=== PATIENT | male | born 1970 | race Caucasian/White ===

== ENCOUNTER 2017-05-31 15:40 | Inpatient (IN) | payer MEDICAID, MEDICARE ==
[2017-05-31 16:17] LABS: MEAN CELL VOLUME 98.7 fl (80-99); MEAN CORPUSCULAR HEMOGLOBIN 34.3 pg (26.0-30.0); MEAN CORPUSCULAR HGB CONC 34.8 pg (28.0-36.0); MEAN PLATELET VOLUME 8.1 fl; RED CELL DISTRIBUTION WIDTH 23.4 % (11.5-20.0)
[2017-05-31 16:30] LABS: ALB/GLOB RATIO 0.7 (1.0-1.8); ALKALINE PHOSPHATASE 148 U/L (34-104); ANION GAP 5.5 (7.0-16.0); BILIRUBIN,TOTAL 8.1 mg/dL (0.3-1.0); BUN - UREA NITROGEN 25 mg/dL (7-25); BUN/CREATININE RATIO 16.7; CALCIUM SERUM 7.6 mg/dL (8.6-10.3); CARBON DIOXIDE 20.9 mEq/L (21.0-31.0); CHLORIDE 95 mEq/L (98-107); CREATININE - SERUM 1.5 mg/dL (0.7-1.3); GLUCOSE 108 mg/dL (70-105); POTASSIUM SERUM 4.4 mEq/L (3.5-5.1); SGOT 45 U/L (13-39); SGPT/ALT 23 U/L (7-52)
--- NOTE | 2017-05-31 16:44 | ED Physician Chart ---
Chief Complaint/HPI - Patient Information Date Seen:: 05/31/17 Time Seen:: 16:44 Chief Complaint:: ABNORMAL LAB VALUES History of Present Illness:: Patient was referred to the emergency department reevaluation of critical low lab values. Serum sodium returned at 117, leaflets were 13,000, white count was 3000 hemoglobin level was 7.5 GRAMS % Allergies:: Allergies Allergy/AdvReac Type Severity Reaction Status Date / Time No Known Allergies Allergy Verified 05/31/17 15:47 Vitals:: Vital Signs - 8 hr 05/31/17 15:47 Temp 97.9 F HR 74 RR 16 BP 126/80 O2 Sat % 97 Family Medical History - Family Member Mother Hx Family Cancer: No Hx Family Coronary Artery Disease: No Hx Family Congestive Heart Failure: No Hx Family Diabetes: No Hx Family Seizures: No Hx Family AIDS: No Hx Family HIV: No Hx Family Hepatitis: No Labs/Radiology/EKG Results - Lab Results Results: Laboratory Tests 05/31/17 16:10 Sodium 117 L* Potassium 4.4 Chloride 95 L Carbon Dioxide 20.9 L Anion Gap 5.5 L BUN 25 Creatinine 1.5 H Est GFR ( Amer) > 60.0 Est GFR (Non-Af Amer) 54.0 BUN/Creatinine Ratio 16.7 Glucose 108 H Calcium 7.6 L Total Bilirubin 8.1 H AST 45 H ALT 23 Alkaline Phosphatase 148 H Total Protein 4.8 L Albumin 2.0 L Globulin 2.8 Albumin/Globulin Ratio 0.7 L Medical hyponatremiA with low calcium. The CBC showed a white count of 3000. Troponin was 7.5 platelet counts were 13,000. Patient has been typed and screen for blood typing. ED Septic Shock - <6hrs of presentation: Vital Signs: Vital Signs - 8 hr 05/31/17 15:47 Temp 97.9 F HR 74 RR 16 BP 126/80 O2 Sat % 97
[2017-05-31 16:54] LABS: SODIUM SERUM 117 mEq/L (136-145)
[2017-05-31 16:57] LABS: HEMATOCRIT 21.7 % (39.0-49.0); HEMOGLOBIN 7.5 gm/dL (13.2-17.3); PLATELET COUNT 13 Th/cmm (150-400)
[2017-05-31] MEDS ORDERED: Sodium Chloride 0.9% 1,000 ML IV ONE (16:58)
[2017-05-31 17:17] LABS: TOTAL CELLS COUNTED 100
[2017-05-31 17:18] LABS: BAND NEUTROPHILE 0 % (0-10); NEUTROPHILS 60 % (40-80)
[2017-05-31 17:19] LABS: BASOPHIL 0 % (0-3); EOSINOPHIL 7 % (0-5); PLATELET ESTIMATE DECREASED PLATELETS (NORMAL); PLATELET MORPHOLOGY NORMAL (NORMAL)
[2017-05-31 17:20] LABS: ANISOCYTOSIS 2+
--- NOTE | 2017-06-01 08:51 | History and Physical ---
History of Present Illness - HPI Chief Complaint: Low platlelets HPI: [facility] is a [facility] who just have abdominal hernia repair, wound opened and was closed again bit get infected, catheter was put for drainage. Labs were order and was found platelets 9.000 reazon why was transfered to hospital for transfusion. 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 alcoholism) Musculoskeletal: Report: No Pertinent Hx Rheumatologic: Report: No pertinent Hx Infectious Disease: Report: Other (Surgical wound infection) Renal/: Report: No Pertinent Hx Dermatology: Report: No Pertinent Hx - Past Surgical History Past Surgical History: Other (Umbilical hernia repair) Family Medical History - Family Member Mother History Unknown: Yes Hx Family Cancer: No Hx Family Coronary Artery Disease: No Hx Family Congestive Heart Failure: No Hx Family Diabetes: No Hx Family Seizures: No Hx Family AIDS: No Hx Family HIV: No Hx Family Hepatitis: No Social History Smoke: No Alcohol: Other (Quiet one year ago) Drugs: Other (Opiates addiction) Lives: With Family Domestic Violence: Negative - Medications Home Medications: Home Medication Medication Instructions Recorded Type Anidulafungin [Eraxis] 100 mg IV DAILY 05/31/17 History Demeclocycline [Declomycin] 150 mg PO Q12HR 05/31/17 History Famotidine [Pepcid] 20 mg PO DAILY 05/31/17 History Furosemide [Lasix] 40 mg PO DAILY 05/31/17 History Lactobacillus Acidophilus 1 each PO DAILY 05/31/17 History [Acidophilus Lactobacillus] Piperacillin Sodium/Tazobactam 3.375 gm IV Q8H 05/31/17 History [Zosyn 3.375 Gram Vial] Sennosides A and B [Senna] 8.6 mg PO DAILY 05/31/17 History Tramadol HCl [Ultram] 50 mg PO Q6H PRN 05/31/17 History - Allergies Allergies/Adverse Reactions: Allergies Allergy/AdvReac Type Severity Reaction Status Date / Time No Known Allergies Allergy Verified 05/31/17 15:47 Review of Systems - Review of Systems Constitutional: Report: No Significant Eyes: Report: No Significant ENT: Report: No Significant Respiratory: Report: No Significant Cardiovascular: Report: No Significant Gastrointestinal: Report: Abdominal Pain Genitourinary: Report: No Significant Musculoskeletal: Report: No Significant Skin: Report: No Significant Neurological: Report: Weakness Physical Exam - Physical Exam HEENT: Report: Ears Nose Throat within normal limits Neck: Report: Within normal limits Cardiovascular Systems: Report: Regular, Rate and Rhythm Respiratory: Report: Breath Sounds are within normal limits Abdomen: Report: Non-tender to palpation (Umbilical surgical wound close but with a lot of drainage and a drainage catheter in place.) Back: Report: Inspection of back is within normal limits. Extremities: Report: Non-tender to palpation. Skin: Report: Color of skin is within normal limits Neuro/Psych: Report: Mood affect is within normal limits - Lab Results All Lab Results last 24 hours: Laboratory Last Values WBC 3.0 Th/cmm (4.8-10.8) L 05/31/17 16:10 RBC 2.20 Mil/cmm (4.30-5.70) L 05/31/17 16:10 Hgb 7.5 gm/dL (13.2-17.3) L* 05/31/17 16:10 Hct 21.7 % (39.0-49.0) L* 05/31/17 16:10 MCV 98.7 fl (80-99) 05/31/17 16:10 MCH 34.3 pg (26.0-30.0) H 05/31/17 16:10 MCHC Differential 34.8 pg (28.0-36.0) 05/31/17 16:10 RDW 23.4 % (11.5-20.0) H 05/31/17 16:10 Plt Count 13 Th/cmm (150-400) L* 05/31/17 16:10 MPV 8.1 fl 05/31/17 16:10 Band Neutrophils % 0 % (0-10) 05/31/17 16:10 Neutrophils (Manual) 60 % (40-80) 05/31/17 16:10 Lymphocytes 22 % (20-50) 05/31/17 16:10 Monocytes 11 % (2-10) H 05/31/17 16:10 Eosinophils 7 % (0-5) H 05/31/17 16:10 Basophils 0 % (0-3) 05/31/17 16:10 Platelet Estimate DECREASED PLATELETS (NORMAL) 05/31/17 16:10 Platelet Morphology NORMAL (NORMAL) 05/31/17 16:10 Anisocytosis 2+ 05/31/17 16:10 RBC Morph Micro Appear ABNORMAL (NORMAL) 05/31/17 16:10 Sodium 117 mEq/L (136-145) L* 05/31/17 16:10 Potassium 4.4 mEq/L (3.5-5.1) 05/31/17 16:10 Chloride 95 mEq/L (98-107) L 05/31/17 16:10 Carbon Dioxide 20.9 mEq/L (21.0-31.0) L 05/31/17 16:10 Anion Gap 5.5 (7.0-16.0) L 05/31/17 16:10 BUN 25 mg/dL (7-25) 05/31/17 16:10 Creatinine 1.5 mg/dL (0.7-1.3) H 05/31/17 16:10 Est GFR ( Amer) > 60.0 ml/min (>90) 05/31/17 16:10 Est GFR (Non-Af Amer) 54.0 ml/min 05/31/17 16:10 BUN/Creatinine Ratio 16.7 05/31/17 16:10 Glucose 108 mg/dL (70-105) H 05/31/17 16:10 Whole Bld Lactic Acid 1.47 mmol/L (0.60-1.99) 05/31/17 16:10 Calcium 7.6 mg/dL (8.6-10.3) L 05/31/17 16:10 Total Bilirubin 8.1 mg/dL (0.3-1.0) H 05/31/17 16:10 AST 45 U/L (13-39) H 05/31/17 16:10 ALT 23 U/L (7-52) 05/31/17 16:10 Alkaline Phosphatase 148 U/L (34-104) H 05/31/17 16:10 Total Protein 4.8 gm/dL (6.0-8.3) L 05/31/17 16:10 Albumin 2.0 gm/dL (4.2-5.5) L 05/31/17 16:10 Globulin 2.8 gm/dL 05/31/17 16:10 Albumin/Globulin Ratio 0.7 (1.0-1.8) L 05/31/17 16:10 Blood Type AB POSITIVE 05/31/17 17:08 Antibody Screen NEGATIVE 05/31/17 17:08 Crossmatch See Detail 05/31/17 17:08 - Assessment Assessment: Patient is awake, calm in no acute distress. Dx: Thombocytopenia, Hyponatrenia , Infected surgical wound, Cirrhosis, Esophageal varices. - Plan Plan: Patient just transfused, wound culture requested, consult with surgery and ID requested. Continue SNF meds.
[2017-06-01 08:55] LABS: % EOSINOPHILS 7.3 % (0.0-5.0); NEUTROPHILE ABSOLUTE 1.5 Th/cmm (1.8-8.0)
[2017-06-01 08:58] LABS: HEMATOCRIT 25.8 % (39.0-49.0); HEMOGLOBIN 8.9 gm/dL (13.2-17.3); MEAN CORPUSCULAR HEMOGLOBIN 33.9 pg (26.0-30.0); MEAN CORPUSCULAR HGB CONC 34.3 pg (28.0-36.0); MEAN PLATELET VOLUME 8.9 fl; RED BLOOD COUNT 2.61 Mil/cmm (4.30-5.70); RED CELL DISTRIBUTION WIDTH 22.5 % (11.5-20.0)
[2017-06-01] MEDS ORDERED: Non-Formulary Item 1 EA (Lactobacillus Acidophilus [Acidophilus Lactobacillus] 1 EACH) PO SCH (09:00)
[2017-06-01] MEDS ORDERED: Pneumococcal Vaccine 0.5 mL Vial IM ONE (09:00)
[2017-06-01 09:06] LABS: ALB/GLOB RATIO 0.7 (1.0-1.8); ALKALINE PHOSPHATASE 152 U/L (34-104); ANION GAP 6.2 (7.0-16.0); BILIRUBIN,TOTAL 8.7 mg/dL (0.3-1.0); BUN - UREA NITROGEN 21 mg/dL (7-25); CARBON DIOXIDE 20.3 mEq/L (21.0-31.0); CHLORIDE 95 mEq/L (98-107); GLUCOSE 98 mg/dL (70-105); POTASSIUM SERUM 4.5 mEq/L (3.5-5.1); SGOT 50 U/L (13-39); SGPT/ALT 25 U/L (7-52)
[2017-06-01 09:07] LABS: WHITE BLOOD COUNT 2.7 Th/cmm (4.8-10.8)
[2017-06-01 09:14] LABS: PLATELET COUNT 27 Th/cmm (150-400)
[2017-06-01 09:26] LABS: SODIUM SERUM 117 mEq/L (136-145)
--- NOTE | 2017-06-01 09:28 | General Progress Note ---
Subjective - Review of Systems Service Date: 06/01/17 Events since last encounter: hernia repair at [facility] a week ago(?), dehisced and drain applied has cirrhosis with severe thrombocytopenia will obtain records from hospital Objective - Results Result Diagrams: 06/01/17 08:40 06/01/17 08:40 Recent Labs: Laboratory Last Values WBC 2.7 Th/cmm (4.8-10.8) L 06/01/17 08:40 RBC 2.61 Mil/cmm (4.30-5.70) L 06/01/17 08:40 Hgb 8.9 gm/dL (13.2-17.3) L 06/01/17 08:40 Hct 25.8 % (39.0-49.0) L D 06/01/17 08:40 MCV 99.0 fl (80-99) 06/01/17 08:40 MCH 33.9 pg (26.0-30.0) H 06/01/17 08:40 MCHC Differential 34.3 pg (28.0-36.0) 06/01/17 08:40 RDW 22.5 % (11.5-20.0) H 06/01/17 08:40 Plt Count 27 Th/cmm (150-400) L* D 06/01/17 08:40 MPV 8.9 fl 06/01/17 08:40 Band Neutrophils % 0 % (0-10) 05/31/17 16:10 Neutrophils (Manual) 60 % (40-80) 05/31/17 16:10 Lymphocytes 22 % (20-50) 05/31/17 16:10 Monocytes 11 % (2-10) H 05/31/17 16:10 Eosinophils 7 % (0-5) H 05/31/17 16:10 Basophils 0 % (0-3) 05/31/17 16:10 Platelet Estimate DECREASED PLATELETS (NORMAL) 05/31/17 16:10 Platelet Morphology NORMAL (NORMAL) 05/31/17 16:10 Anisocytosis 2+ 05/31/17 16:10 RBC Morph Micro Appear ABNORMAL (NORMAL) 05/31/17 16:10 Sodium 117 mEq/L (136-145) L* 06/01/17 08:40 Potassium 4.5 mEq/L (3.5-5.1) 06/01/17 08:40 Chloride 95 mEq/L (98-107) L 06/01/17 08:40 Carbon Dioxide 20.3 mEq/L (21.0-31.0) L 06/01/17 08:40 Anion Gap 6.2 (7.0-16.0) L 06/01/17 08:40 BUN 21 mg/dL (7-25) 06/01/17 08:40 Creatinine 1.0 mg/dL (0.7-1.3) 06/01/17 08:40 Est GFR ( Amer) > 60.0 ml/min (>90) 06/01/17 08:40 Est GFR (Non-Af Amer) > 60.0 ml/min 06/01/17 08:40 BUN/Creatinine Ratio 21.0 06/01/17 08:40 Glucose 98 mg/dL (70-105) 06/01/17 08:40 Whole Bld Lactic Acid 1.47 mmol/L (0.60-1.99) 05/31/17 16:10 Calcium 8.0 mg/dL (8.6-10.3) L 06/01/17 08:40 Total Bilirubin 8.7 mg/dL (0.3-1.0) H 06/01/17 08:40 AST 50 U/L (13-39) H 06/01/17 08:40 ALT 25 U/L (7-52) 06/01/17 08:40 Alkaline Phosphatase 152 U/L (34-104) H 06/01/17 08:40 Total Protein 5.2 gm/dL (6.0-8.3) L 06/01/17 08:40 Albumin 2.2 gm/dL (4.2-5.5) L 06/01/17 08:40 Globulin 3.0 gm/dL 06/01/17 08:40 Albumin/Globulin Ratio 0.7 (1.0-1.8) L 06/01/17 08:40 Blood Type AB POSITIVE 05/31/17 17:08 Antibody Screen NEGATIVE 05/31/17 17:08 Crossmatch See Detail 05/31/17 17:08 - Physical Exam Vitals and I&O: Vital Signs Temp 97.1 F 06/01/17 04:00 Pulse 94 06/01/17 04:00 Resp 18 06/01/17 04:00 BP 107/58 06/01/17 04:00 Pulse Ox 95 06/01/17 04:00 Intake & Output 05/31/17 06/01/17 06/01/17 18:59 06:59 18:59 Intake Total 1000 Balance 1000 Intake: Intake, IV Amount 1000 Sodium Chloride 0.9% 1, 1000 000 ml @ Wide Open IV . Q0M ONE Rx#:[id number] Active Medications: Current Medications Famotidine (Pepcid) 20 mg PO DAILY [facility] Stop: 07/31/17 08:59 Furosemide (Lasix) 20 mg IVP DAILY [facility] Stop: 07/31/17 08:59 Furosemide (Lasix) 40 mg PO DAILY [facility] Stop: 07/31/17 08:59 Lactobacillus Rhamnosus (Culturelle) 1 each PO DAILY [facility] Stop: 07/31/17 08:59 Senna (Senna) 8.6 mg PO DAILY [facility] Stop: 07/31/17 08:59 Sodium Chloride (Nacl Tab) 1 gm PO TID [facility] Stop: 07/31/17 08:59 Tramadol HCl (Ultram) 50 mg PO Q6H PRN PRN Reason: Pain (Mild) Stop: 07/31/17 08:27
[2017-06-01] MEDS: Lactobacillus Rhamnosus 10 Billion CFU Capsule PO SCH (09:33)
[2017-06-01 09:36] LABS: BAND NEUTROPHILE 2 % (0-10); EOSINOPHIL 4 % (0-5); NEUTROPHILS 68 % (40-80); TOTAL CELLS COUNTED 100
[2017-06-01] MEDS: Vancomycin HCl 1.5 GM in Sodium Chloride 0.9% 500 ML IV SCH (16:49)
[2017-06-01] MEDS: Cefepime 1 GM in Sodium Chloride 0.9% 50 ML IV SCH (22:20)
[2017-06-01] MEDS: Maalox 30 mL Cup PO PRN (23:12)
--- NOTE | 2017-06-02 04:18 | Admit Criteria Form ---
Admit Criteria Forms - Admit Criteria Diagnosis: ANEMIA, IRON DEFICIENCY OR UNSPECIFIED Clinical Indications for Inpatient Care (Place 'X' for any and all applicable criteria): Admission is indicated for ANY ONE of the following(1)(2)(3)(4)(5)(6)(7): [X] I. Inpatient admission required rather than observation care (Also use Anemia, Iron Deficiency or Unspecified: Observation Care guideline as appropriate) because of ANY ONE of the following: [] a) Hemodynamic instability that is severe or persistent [] b) Active bleeding that cannot be rapidly controlled [] c) CVS symptoms (i.e., dyspnea, chest pain, heart failure) that are severe or persistent [] d) Neurologic symptoms (i.e., cognitive impairment, recurrent syncope or near syncope) that are severe or persistent [] e) Cardiac arrhythmias of immediate concern [] f) Acute peripheral ischemia (e.g., pulseless, cool, mottled, or cyanotic extremity) [X] g) High-risk low platelet count [] h) Acute renal failure [] i) Ongoing transfusion for blood loss (greater than 2 units) [] j) IV fluid to replace significant ongoing (eg, >24 hours) losses (> 3 L/m2 per day) [] k) Pulmonary artery catheter monitoring [] l) Supplemental oxygen or respiratory treatments for over 24 hours that are performable only in acute inpatient setting [] m) Immediate inpatient surgery [] n) Other condition, treatment or monitoring requiring inpatient admission [] II Active massive hemorrhage [] III. Active hemolysis with rapidly progressive anemia [A](6) Extended stay beyond goal length of stay may be needed for (17)(18) []a) Diagnosed cause of anemia requiring longer hospitalization (eg, active GI bleeding, immune hemolysis requiring electrophoresis, complications of malignancy requiring acute care []b) Continued emergent anemia indicators (23) []c) Transfusion reactions []d) Associated leukopenia or thrombocytopenia needing inpatient care []e) Active comorbidities (eg, renal failure, heart failure) The original [employer] content created by [employer] has been revised. The portions of the content which have been revised are identified through the use of italic text or in bold. [employer] has neither reviewed nor approved the modified material. All other unmodified content is copyright [employer]. Please see references footnoted in the original [facility] edition 2016 Admit Criteria Met?: Yes
[2017-06-02] MEDS: Vancomycin HCl 1.5 GM in Sodium Chloride 0.9% 500 ML IV SCH ×2 (04:56→16:22)
[2017-06-02 05:49] LABS: HEMOGLOBIN 8.3 gm/dL (13.2-17.3); MEAN CELL VOLUME 99.5 fl (80-99); MEAN CORPUSCULAR HEMOGLOBIN 34.3 pg (26.0-30.0); MEAN CORPUSCULAR HGB CONC 34.5 pg (28.0-36.0); MEAN PLATELET VOLUME 8.8 fl; RED BLOOD COUNT 2.41 Mil/cmm (4.30-5.70); RED CELL DISTRIBUTION WIDTH 23.3 % (11.5-20.0)
[2017-06-02 06:17] LABS: PLATELET COUNT 23 Th/cmm (150-400); WHITE BLOOD COUNT 2.2 Th/cmm (4.8-10.8)
[2017-06-02] MEDS: Maalox 30 mL Cup PO PRN ×3 (07:02→20:35)
[2017-06-02 07:12] LABS: ALB/GLOB RATIO 0.7 (1.0-1.8); ALKALINE PHOSPHATASE 118 U/L (34-104); ANION GAP 6.8 (7.0-16.0); BILIRUBIN,TOTAL 10.5 mg/dL (0.3-1.0); BUN - UREA NITROGEN 15 mg/dL (7-25); BUN/CREATININE RATIO 16.7; CALCIUM SERUM 7.9 mg/dL (8.6-10.3); CARBON DIOXIDE 22.8 mEq/L (21.0-31.0); CHLORIDE 94 mEq/L (98-107); CREATININE - SERUM 0.9 mg/dL (0.7-1.3); GLUCOSE 110 mg/dL (70-105); POTASSIUM SERUM 4.6 mEq/L (3.5-5.1); SGOT 52 U/L (13-39); SGPT/ALT 26 U/L (7-52)
[2017-06-02 07:20] LABS: SODIUM SERUM 119 mEq/L (136-145)
[2017-06-02 07:48] LABS: TOTAL CELLS COUNTED 100
[2017-06-02 07:49] LABS: EOSINOPHIL 7 % (0-5); NEUTROPHILS 58 % (40-80); PLATELET ESTIMATE DECREASED PLATELETS (NORMAL)
[2017-06-02] MEDS: Lactobacillus Rhamnosus 10 Billion CFU Capsule PO SCH (09:00)
[2017-06-02] MEDS: Cefepime 1 GM in Sodium Chloride 0.9% 50 ML IV SCH (09:18)
[2017-06-02] MEDS: Meropenem 1 GM in Sodium Chloride 0.9% 100 ML IV SCH ×2 (12:46→20:36)
[2017-06-02] MEDS ORDERED: Probiotic Screen MC PRN (13:23)
--- NOTE | 2017-06-02 13:27 | General Progress Note ---
Subjective - Review of Systems Service Date: 06/02/17 Subjective: I am OK. Objective - Results Result Diagrams: 06/02/17 05:10 06/02/17 05:10 Recent Labs: Laboratory Last Values WBC 2.2 Th/cmm (4.8-10.8) L* 06/02/17 05:10 RBC 2.41 Mil/cmm (4.30-5.70) L 06/02/17 05:10 Hgb 8.3 gm/dL (13.2-17.3) L 06/02/17 05:10 Hct 24.0 % (39.0-49.0) L 06/02/17 05:10 MCV 99.5 fl (80-99) H 06/02/17 05:10 MCH 34.3 pg (26.0-30.0) H 06/02/17 05:10 MCHC Differential 34.5 pg (28.0-36.0) 06/02/17 05:10 RDW 23.3 % (11.5-20.0) H 06/02/17 05:10 Plt Count 23 Th/cmm (150-400) L* 06/02/17 05:10 MPV 8.8 fl 06/02/17 05:10 Band Neutrophils % 2 % (0-10) 06/01/17 08:40 Eosinophils % 7.3 % (0.0-5.0) H 06/01/17 08:40 Neutrophils (Manual) 58 % (40-80) 06/02/17 05:10 Lymphocytes 29 % (20-50) 06/02/17 05:10 Monocytes 6 % (2-10) 06/02/17 05:10 Eosinophils 7 % (0-5) H 06/02/17 05:10 Basophils 0 % (0-3) 05/31/17 16:10 Platelet Estimate DECREASED PLATELETS (NORMAL) 06/02/17 05:10 Platelet Morphology (NORMAL) 06/02/17 05:10 Anisocytosis 2+ 05/31/17 16:10 RBC Morph Micro Appear ABNORMAL (NORMAL) 05/31/17 16:10 Sodium 119 mEq/L (136-145) L* 06/02/17 05:10 Potassium 4.6 mEq/L (3.5-5.1) 06/02/17 05:10 Chloride 94 mEq/L (98-107) L 06/02/17 05:10 Carbon Dioxide 22.8 mEq/L (21.0-31.0) 06/02/17 05:10 Anion Gap 6.8 (7.0-16.0) L 06/02/17 05:10 BUN 15 mg/dL (7-25) 06/02/17 05:10 Creatinine 0.9 mg/dL (0.7-1.3) 06/02/17 05:10 Est GFR ( Amer) > 60.0 ml/min (>90) 06/02/17 05:10 Est GFR (Non-Af Amer) > 60.0 ml/min 06/02/17 05:10 BUN/Creatinine Ratio 16.7 06/02/17 05:10 Glucose 110 mg/dL (70-105) H 06/02/17 05:10 Whole Bld Lactic Acid 1.47 mmol/L (0.60-1.99) 05/31/17 16:10 Calcium 7.9 mg/dL (8.6-10.3) L 06/02/17 05:10 Total Bilirubin 10.5 mg/dL (0.3-1.0) H 06/02/17 05:10 AST 52 U/L (13-39) H 06/02/17 05:10 ALT 26 U/L (7-52) 06/02/17 05:10 Alkaline Phosphatase 118 U/L (34-104) H 06/02/17 05:10 Total Protein 5.3 gm/dL (6.0-8.3) L 06/02/17 05:10 Albumin 2.1 gm/dL (4.2-5.5) L 06/02/17 05:10 Globulin 3.2 gm/dL 06/02/17 05:10 Albumin/Globulin Ratio 0.7 (1.0-1.8) L 06/02/17 05:10 Blood Type AB POSITIVE 05/31/17 17:08 Antibody Screen NEGATIVE 05/31/17 17:08 Crossmatch See Detail 05/31/17 17:08 - Physical Exam Vitals and I&O: Vital Signs Temp 98 F 06/02/17 11:13 Pulse 99 06/02/17 11:13 Resp 18 06/02/17 11:13 BP 110/66 06/02/17 11:13 Pulse Ox 99 06/02/17 11:13 Intake & Output 06/01/17 06/02/17 06/02/17 18:59 06:59 18:59 Intake Total 740 290 100 Output Total 650 Balance 740 -360 100 Weight (lbs) 81.647 kg 93.485 kg 93.44 kg Intake: Intake, IV Amount 500 50 Cefepime 1 gm In Sodium 50 Chloride 0.9% 50 ml @ 100 mls/hr IV Q12HR [facility] Rx#: [id number] Vancomycin HCl 1.5 gm In 500 Sodium Chloride 0.9% 500 ml @ 250 mls/hr IV Q12H [facility] Rx#:[id number] Oral 240 240 100 Output: Gastric Drainage 250 Urine 400 Other: # Voids 3 Active Medications: Current Medications Al Hydrox/Mg Hydrox/Simethicone (Maalox) 30 ml PO Q8HR PRN PRN Reason: Indigestion Stop: 07/31/17 21:17 Last Admin: 06/02/17 12:13 Dose: 30 ml Famotidine (Pepcid) 20 mg PO DAILY [facility] Stop: 07/31/17 08:59 Last Admin: 06/02/17 09:00 Dose: 20 mg Furosemide (Lasix) 40 mg PO DAILY [facility] Stop: 07/31/17 08:59 Last Admin: 06/02/17 08:33 Dose: 40 mg Vancomycin HCl 1.5 gm/ Sodium (Chloride) 500 mls @ 250 mls/hr IV Q12H [facility] Stop: 07/31/17 15:59 Last Admin: 06/02/17 04:56 Dose: 250 mls/hr Meropenem 1 gm/ Sodium (Chloride) 100 mls @ 100 mls/hr IV Q8H [facility] Stop: 08/01/17 11:59 Last Admin: 06/02/17 12:46 Dose: 100 mls/hr Lactobacillus Rhamnosus (Culturelle) 1 each PO DAILY [facility] Stop: 07/31/17 08:59 Last Admin: 06/02/17 09:00 Dose: 1 each Miscellaneous (Vancomycin Iv Per Pharmacy) 1 ea PRN [facility] Stop: 07/31/17 15:44 Miscellaneous (Probiotic Screen) 1 ea PRN PRN PRN Reason: PROTOCOL Stop: 08/01/17 13:22 Senna (Senna) 8.6 mg PO DAILY [facility] Stop: 07/31/17 08:59 Last Admin: 06/02/17 09:00 Dose: 8.6 mg Sodium Chloride (Nacl Tab) 1 gm PO TID [facility] Stop: 07/31/17 08:59 Last Admin: 06/02/17 08:33 Dose: 1 gm Tramadol HCl (Ultram) 50 mg PO Q6H PRN PRN Reason: Pain (Mild) Stop: 07/31/17 08:27 Last Admin: 06/01/17 20:43 Dose: 50 mg General: Alert, Oriented x3, Cooperative, No acute distress HEENT: Atraumatic Neck: Supple Cardiovascular: Regular rate Lungs: Clear to auscultation Abdomen: Bowel sounds, Soft, Other (Surgical wound with some drainage) Extremities: Other (No edema) Neurological: Normal gait Skin: Other (Warm and dry) Psych/Mental Status: Mental status NL - Procedures Procedures: Procedures Procedure Code Date BLOOD TRANSFUSION SERVICE 30014 05/31/17 TRANSFUSE NONAUT RED BLOOD CELLS IN PERIPH VEIN, [facility] [id number] 05/31/17 Assessment/Plan - Assessment Assessment: Patient is awake, calm in no acute distress. Dx: Thombocytopenia, Hyponatrenia , Infected surgical wound, Cirrhosis, Esophageal varices. - Plan Plan: Patient just transfused, wound culture requested, Thrombocytopenia improving, Hyponatremia improving, on Meropenem. Will continue to monitor.
[2017-06-02 16:54] LABS: INR 1.47 (0.5-1.4); PROTHROMBIN TIME (TEST) 15.6 SECONDS (9.5-11.5)
--- NOTE | 2017-06-02 16:56 | General Progress Note ---
Subjective - Review of Systems Service Date: 06/02/17 Events since last encounter: awaiting op reports from [facility] patient is NOT a surgical candidate with thrombocytopenia and seveere cirrhosis Objective - Results Result Diagrams: 06/02/17 05:10 06/02/17 05:10 Recent Labs: Laboratory Last Values WBC 2.2 Th/cmm (4.8-10.8) L* 06/02/17 05:10 RBC 2.41 Mil/cmm (4.30-5.70) L 06/02/17 05:10 Hgb 8.3 gm/dL (13.2-17.3) L 06/02/17 05:10 Hct 24.0 % (39.0-49.0) L 06/02/17 05:10 MCV 99.5 fl (80-99) H 06/02/17 05:10 MCH 34.3 pg (26.0-30.0) H 06/02/17 05:10 MCHC Differential 34.5 pg (28.0-36.0) 06/02/17 05:10 RDW 23.3 % (11.5-20.0) H 06/02/17 05:10 Plt Count 23 Th/cmm (150-400) L* 06/02/17 05:10 MPV 8.8 fl 06/02/17 05:10 Band Neutrophils % 2 % (0-10) 06/01/17 08:40 Eosinophils % 7.3 % (0.0-5.0) H 06/01/17 08:40 Neutrophils (Manual) 58 % (40-80) 06/02/17 05:10 Lymphocytes 29 % (20-50) 06/02/17 05:10 Monocytes 6 % (2-10) 06/02/17 05:10 Eosinophils 7 % (0-5) H 06/02/17 05:10 Basophils 0 % (0-3) 05/31/17 16:10 Platelet Estimate DECREASED PLATELETS (NORMAL) 06/02/17 05:10 Platelet Morphology (NORMAL) 06/02/17 05:10 Anisocytosis 2+ 05/31/17 16:10 RBC Morph Micro Appear ABNORMAL (NORMAL) 05/31/17 16:10 PT 15.6 SECONDS (9.5-11.5) H 06/02/17 16:35 INR 1.47 (0.5-1.4) H 06/02/17 16:35 PTT (Actin FS) 39.4 SECONDS (26.0-38.0) H 06/02/17 16:35 Sodium 119 mEq/L (136-145) L* 06/02/17 05:10 Potassium 4.6 mEq/L (3.5-5.1) 06/02/17 05:10 Chloride 94 mEq/L (98-107) L 06/02/17 05:10 Carbon Dioxide 22.8 mEq/L (21.0-31.0) 06/02/17 05:10 Anion Gap 6.8 (7.0-16.0) L 06/02/17 05:10 BUN 15 mg/dL (7-25) 06/02/17 05:10 Creatinine 0.9 mg/dL (0.7-1.3) 06/02/17 05:10 Est GFR ( Amer) > 60.0 ml/min (>90) 06/02/17 05:10 Est GFR (Non-Af Amer) > 60.0 ml/min 06/02/17 05:10 BUN/Creatinine Ratio 16.7 06/02/17 05:10 Glucose 110 mg/dL (70-105) H 06/02/17 05:10 Whole Bld Lactic Acid 1.47 mmol/L (0.60-1.99) 05/31/17 16:10 Calcium 7.9 mg/dL (8.6-10.3) L 06/02/17 05:10 Total Bilirubin 10.5 mg/dL (0.3-1.0) H 06/02/17 05:10 AST 52 U/L (13-39) H 06/02/17 05:10 ALT 26 U/L (7-52) 06/02/17 05:10 Alkaline Phosphatase 118 U/L (34-104) H 06/02/17 05:10 Total Protein 5.3 gm/dL (6.0-8.3) L 06/02/17 05:10 Albumin 2.1 gm/dL (4.2-5.5) L 06/02/17 05:10 Globulin 3.2 gm/dL 06/02/17 05:10 Albumin/Globulin Ratio 0.7 (1.0-1.8) L 06/02/17 05:10 Blood Type AB POSITIVE 05/31/17 17:08 Antibody Screen NEGATIVE 05/31/17 17:08 Crossmatch See Detail 05/31/17 17:08 - Physical Exam Vitals and I&O: Vital Signs Temp 98.2 F 06/02/17 15:35 Pulse 72 06/02/17 15:35 Resp 18 06/02/17 15:35 BP 100/57 06/02/17 15:35 Pulse Ox 99 06/02/17 11:13 Intake & Output 06/01/17 06/02/17 06/02/17 18:59 06:59 18:59 Intake Total 740 790 100 Output Total 650 Balance 740 140 100 Weight (lbs) 81.647 kg 93.485 kg 93.44 kg Intake: Intake, IV Amount 500 550 Cefepime 1 gm In Sodium 50 Chloride 0.9% 50 ml @ 100 mls/hr IV Q12HR [facility] Rx#: [id number] Vancomycin HCl 1.5 gm In 500 500 Sodium Chloride 0.9% 500 ml @ 250 mls/hr IV Q12H [facility] Rx#:[id number] Oral 240 240 100 Output: Gastric Drainage 250 Urine 400 Other: # Voids 3 Active Medications: Current Medications Al Hydrox/Mg Hydrox/Simethicone (Maalox) 30 ml PO Q8HR PRN PRN Reason: Indigestion Stop: 07/31/17 21:17 Last Admin: 06/02/17 12:13 Dose: 30 ml Famotidine (Pepcid) 20 mg PO DAILY [facility] Stop: 07/31/17 08:59 Last Admin: 06/02/17 09:00 Dose: 20 mg Furosemide (Lasix) 40 mg PO DAILY [facility] Stop: 07/31/17 08:59 Last Admin: 06/02/17 08:33 Dose: 40 mg Vancomycin HCl 1.5 gm/ Sodium (Chloride) 500 mls @ 250 mls/hr IV Q12H [facility] Stop: 07/31/17 15:59 Last Admin: 06/02/17 16:22 Dose: 250 mls/hr Meropenem 1 gm/ Sodium (Chloride) 100 mls @ 100 mls/hr IV Q8H [facility] Stop: 08/01/17 11:59 Last Admin: 06/02/17 12:46 Dose: 100 mls/hr Lactobacillus Rhamnosus (Culturelle) 1 each PO DAILY [facility] Stop: 07/31/17 08:59 Last Admin: 06/02/17 09:00 Dose: 1 each Miscellaneous (Vancomycin Iv Per Pharmacy) 1 ea PRN [facility] Stop: 07/31/17 15:44 Miscellaneous (Probiotic Screen) 1 ea PRN PRN PRN Reason: PROTOCOL Stop: 08/01/17 13:22 Senna (Senna) 8.6 mg PO DAILY [facility] Stop: 07/31/17 08:59 Last Admin: 06/02/17 09:00 Dose: 8.6 mg Sodium Chloride (Nacl Tab) 1 gm PO TID [facility] Stop: 07/31/17 08:59 Last Admin: 06/02/17 13:43 Dose: 1 gm Tramadol HCl (Ultram) 50 mg PO Q6H PRN PRN Reason: Pain (Mild) Stop: 07/31/17 08:27 Last Admin: 06/01/17 20:43 Dose: 50 mg General: Alert, Oriented x3, Cooperative, No acute distress HEENT: Atraumatic Neck: Supple Cardiovascular: Regular rate Lungs: Clear to auscultation Abdomen: Bowel sounds, Soft, Other (Surgical wound with some drainage) Extremities: Other (No edema) Neurological: Normal gait Skin: Other (Warm and dry) Psych/Mental Status: Mental status NL - Procedures Procedures: Procedures Procedure Code Date BLOOD TRANSFUSION SERVICE 11119 05/31/17 TRANSFUSE NONAUT RED BLOOD CELLS IN PERIPH VEIN, [facility] [id number] 05/31/17
--- NOTE | 2017-06-02 17:49 | Consultation ---
DATE OF CONSULTATION: 06/02/2017 Information is basically obtained from the chart because otherwise, the patient is totally unreliable on giving any information. Apparently, he had an abdominal hernia repair, which dehisced and ____ operated on with a catheter put in place. We are waiting for the operative report to come from [facility] where apparently this was done. LABORATORY STUDIES: On this admission, the WBC is low at 3000 with hemoglobin of 7.5, platelet count low at 13,000. The liver function tests are grossly abnormal with bilirubin of 8.1, AST of 45, alkaline phosphatase of 148, total protein 4.8, albumin of 2.0. PHYSICAL EXAMINATION: The patient is alert and awake, but information is not dependable. He tends to exaggerate. There is an abdominal incision with a Hugo-Ashby drain in place, which is draining serous fluid. RECOMMENDATIONS: Obtain operative report from hospital where he had an operation done. He is not a surgical candidate with leukopenia and thrombocytopenia and severe cirrhosis of the liver. We will follow with you. JOB# [id number]
--- NOTE | 2017-06-02 19:18 | Consultation ---
DATE OF CONSULTATION: 06/02/2017 REFERRING PHYSICIAN: Dr. Cuellar. REASON FOR CONSULTATION: Leukopenia and thrombocytopenia. HISTORY OF PRESENT ILLNESS: The patient is a 46-year-old male with long history of alcoholism and liver cirrhosis. He had abdominal hernia for the past few years and underwent a recent repair 3 weeks ago at [facility]. He had infection of the drainage site, therefore, the patient was admitted. He was found to have platelet count of 9000, transfused one packed red blood cells and 1 platelets for hemoglobin of 7.5 and platelets of 9000. The increment in the platelet was mild and the patient did not have any bleeding since admission. PAST MEDICAL HISTORY: Liver cirrhosis, history of ____, history of GI bleeding in the past. He is using alcohol ____ opiates. PAST SURGICAL HISTORY: Umbilical hernia. SOCIAL HISTORY: Chronic alcoholic drinking, the patient quit several months ago. MEDICATIONS: Medications from home prior to admission Zosyn, acidophilus, Lasix, famotidine. PHYSICAL EXAMINATION: GENERAL: The patient is chronically ill looking, awake, alert, oriented. Sister at bedside. VITAL SIGNS: Stable. HEENT: Atraumatic. No buccal mucosal bleeding. NECK: No lymphadenopathy. CHEST: Clear. ABDOMEN: Dressing over the large hernia which was recently repaired with drainage in place. No active bleeding. EXTREMITIES: Edema on both lower extremities. LABORATORY DATA: White count 2.2, platelet count 23, hemoglobin 8.3, MCV 99.5, bilirubin 10.5, albumin 2.1, AST 52. ASSESSMENT: 1. Liver cirrhosis with hypersplenism. 2. Chronic pancytopenia secondary to hypersplenism. 3. Hernia status post repair with infection of the drainage site, on IV antibiotics; keep the patient off Zosyn. I will obtain ultrasound of the abdomen, B12 and ferritin level. No need for further transfusion and I will obtain coagulation panel. Thank you, Dr. Cuellar for the opportunity to participate in the care of this interesting case . JOB# [id number]
--- NOTE | 2017-06-02 23:12 | Consultation ---
DATE OF CONSULTATION: 06/01/2017 PRIMARY CARE PHYSICIAN: Dr. Cuellar. HISTORY OF PRESENT ILLNESS: The patient is a 46-year-old male, who was brought to the Emergency Room with complaint of abdominal wound infection. HISTORY OF PRESENT ILLNESS: The patient underwent umbilical hernia repair at [facility] and subsequent infection. The patient got surgical wound infection and underwent drain placement. PAST MEDICAL HISTORY: Liver cirrhosis. SOCIAL HISTORY: Nonsmoker. PAST SURGICAL HISTORY: Hernia repair. REVIEW OF SYSTEMS: A 14-point review of systems negative except above. PHYSICAL EXAMINATION: GENERAL: The patient is alert, awake, not in distress. VITAL SIGNS: Temperature is 98.4, pulse is 74, respirations 16, blood pressure 126/80. HEENT: Mild pallor. No icterus. No plaque. NECK: Supple. LUNGS: Breath sounds bilateral vesicular. CARDIOVASCULAR: S1, S2. ABDOMEN: Soft. Bowel sounds present. The patient had umbilical wound with drain present. NODES: No cervical lymph nodes. LABORATORY DATA: White count is 2,000, hemoglobin is 8 g, platelets 23. DIAGNOSES: Liver cirrhosis, pancytopenia, surgical wound infection, history of ESBL. PLAN: The patient was started on Merrem and vancomycin. Repeat labs tomorrow. Probiotics. Pain control with tramadol. Thank you, Dr. Cuellar for this consultation. JOB# [id number]
[2017-06-03] MEDS: Meropenem 1 GM in Sodium Chloride 0.9% 100 ML IV SCH ×2 (04:06→11:18)
[2017-06-03] MEDS: Maalox 30 mL Cup PO PRN (04:11)
[2017-06-03 04:42] LABS: HEMATOCRIT 25.8 % (39.0-49.0); HEMOGLOBIN 8.9 gm/dL (13.2-17.3); MEAN CELL VOLUME 100.1 fl (80-99); MEAN CORPUSCULAR HEMOGLOBIN 34.6 pg (26.0-30.0); MEAN CORPUSCULAR HGB CONC 34.6 pg (28.0-36.0); MEAN PLATELET VOLUME 10.1 fl; RED BLOOD COUNT 2.58 Mil/cmm (4.30-5.70); RED CELL DISTRIBUTION WIDTH 23.6 % (11.5-20.0)
[2017-06-03 05:12] LABS: PLATELET COUNT 27 Th/cmm (150-400)
[2017-06-03] MEDS: Vancomycin HCl 1.5 GM in Sodium Chloride 0.9% 500 ML IV SCH ×2 (05:12→15:21)
[2017-06-03 08:43] LABS: BAND NEUTROPHILE 3 % (0-10); EOSINOPHIL 8 % (0-5); NEUTROPHILS 66 % (40-80); TOTAL CELLS COUNTED 100
[2017-06-03 08:44] LABS: ANISOCYTOSIS 2+; PLATELET ESTIMATE DECREASED PLATELETS (NORMAL); PLATELET MORPHOLOGY NORMAL (NORMAL); POIKILOCYTOSIS 1+; ROULEAUX 1+
--- NOTE | 2017-06-03 09:11 | General Progress Note ---
Subjective - Review of Systems Service Date: 06/03/17 Subjective: I am OK. Objective - Results Result Diagrams: 06/03/17 03:30 06/02/17 05:10 Recent Labs: Laboratory Last Values WBC 3.0 Th/cmm (4.8-10.8) L D 06/03/17 03:30 RBC 2.58 Mil/cmm (4.30-5.70) L 06/03/17 03:30 Hgb 8.9 gm/dL (13.2-17.3) L 06/03/17 03:30 Hct 25.8 % (39.0-49.0) L 06/03/17 03:30 MCV 100.1 fl (80-99) H 06/03/17 03:30 MCH 34.6 pg (26.0-30.0) H 06/03/17 03:30 MCHC Differential 34.6 pg (28.0-36.0) 06/03/17 03:30 RDW 23.6 % (11.5-20.0) H 06/03/17 03:30 Plt Count 27 Th/cmm (150-400) L* 06/03/17 03:30 MPV 10.1 fl 06/03/17 03:30 Band Neutrophils % 3 % (0-10) 06/03/17 03:30 Eosinophils % 7.3 % (0.0-5.0) H 06/01/17 08:40 Neutrophils (Manual) 66 % (40-80) 06/03/17 03:30 Lymphocytes 13 % (20-50) L 06/03/17 03:30 Monocytes 9 % (2-10) 06/03/17 03:30 Eosinophils 8 % (0-5) H 06/03/17 03:30 Basophils 0 % (0-3) 05/31/17 16:10 Atypical Lymphocytes 1 % 06/03/17 03:30 Platelet Estimate DECREASED PLATELETS (NORMAL) 06/03/17 03:30 Platelet Morphology NORMAL (NORMAL) 06/03/17 03:30 Poikilocytosis 1+ 06/03/17 03:30 Anisocytosis 2+ 06/03/17 03:30 Rouleaux 1+ 06/03/17 03:30 RBC Morph Micro Appear ABNORMAL (NORMAL) 06/03/17 03:30 PT 15.6 SECONDS (9.5-11.5) H 06/02/17 16:35 INR 1.47 (0.5-1.4) H 06/02/17 16:35 PTT (Actin FS) 39.4 SECONDS (26.0-38.0) H 06/02/17 16:35 Sodium 119 mEq/L (136-145) L* 06/02/17 05:10 Potassium 4.6 mEq/L (3.5-5.1) 06/02/17 05:10 Chloride 94 mEq/L (98-107) L 06/02/17 05:10 Carbon Dioxide 22.8 mEq/L (21.0-31.0) 06/02/17 05:10 Anion Gap 6.8 (7.0-16.0) L 06/02/17 05:10 BUN 15 mg/dL (7-25) 06/02/17 05:10 Creatinine 0.9 mg/dL (0.7-1.3) 06/02/17 05:10 Est GFR ( Amer) > 60.0 ml/min (>90) 06/02/17 05:10 Est GFR (Non-Af Amer) > 60.0 ml/min 06/02/17 05:10 BUN/Creatinine Ratio 16.7 06/02/17 05:10 Glucose 110 mg/dL (70-105) H 06/02/17 05:10 Whole Bld Lactic Acid 1.47 mmol/L (0.60-1.99) 05/31/17 16:10 Calcium 7.9 mg/dL (8.6-10.3) L 06/02/17 05:10 Total Bilirubin 10.5 mg/dL (0.3-1.0) H 06/02/17 05:10 AST 52 U/L (13-39) H 06/02/17 05:10 ALT 26 U/L (7-52) 06/02/17 05:10 Alkaline Phosphatase 118 U/L (34-104) H 06/02/17 05:10 Total Protein 5.3 gm/dL (6.0-8.3) L 06/02/17 05:10 Albumin 2.1 gm/dL (4.2-5.5) L 06/02/17 05:10 Globulin 3.2 gm/dL 06/02/17 05:10 Albumin/Globulin Ratio 0.7 (1.0-1.8) L 06/02/17 05:10 Vancomycin Trough 12.5 ug/mL (10-20) 06/03/17 03:30 Blood Type AB POSITIVE 05/31/17 17:08 Antibody Screen NEGATIVE 05/31/17 17:08 Crossmatch See Detail 05/31/17 17:08 - Physical Exam Vitals and I&O: Vital Signs Temp 98.2 F 06/03/17 04:00 Pulse 100 06/03/17 04:00 Resp 20 06/03/17 04:00 BP 102/59 06/03/17 04:00 Pulse Ox 99 06/03/17 04:00 Intake & Output 06/02/17 06/03/17 06/03/17 18:59 06:59 18:59 Intake Total 700 100 Balance 700 100 Weight (lbs) 93.44 kg Intake: Intake, IV Amount 600 100 Meropenem 1 gm In Sodium 100 100 Chloride 0.9% 100 ml @ 100 mls/hr IV Q8H [facility] Rx# :[id number] Vancomycin HCl 1.5 gm In 500 Sodium Chloride 0.9% 500 ml @ 250 mls/hr IV Q12H [facility] Rx#:[id number] Oral 100 Other: # Voids 3 Active Medications: Current Medications Al Hydrox/Mg Hydrox/Simethicone (Maalox) 30 ml PO Q8HR PRN PRN Reason: Indigestion Stop: 07/31/17 21:17 Last Admin: 06/03/17 04:11 Dose: 30 ml Famotidine (Pepcid) 20 mg PO DAILY [facility] Stop: 07/31/17 08:59 Last Admin: 06/02/17 09:00 Dose: 20 mg Furosemide (Lasix) 40 mg PO DAILY [facility] Stop: 07/31/17 08:59 Last Admin: 06/02/17 08:33 Dose: 40 mg Vancomycin HCl 1.5 gm/ Sodium (Chloride) 500 mls @ 250 mls/hr IV Q12H [facility] Stop: 07/31/17 15:59 Last Admin: 06/03/17 05:12 Dose: 250 mls/hr Meropenem 1 gm/ Sodium (Chloride) 100 mls @ 100 mls/hr IV Q8H [facility] Stop: 08/01/17 11:59 Last Admin: 06/03/17 04:06 Dose: 100 mls/hr Lactobacillus Rhamnosus (Culturelle) 1 each PO DAILY [facility] Stop: 07/31/17 08:59 Last Admin: 06/02/17 09:00 Dose: 1 each Miscellaneous (Vancomycin Iv Per Pharmacy) 1 ea PRN [facility] Stop: 07/31/17 15:44 Miscellaneous (Probiotic Screen) 1 [facility] PRN PRN PRN Reason: PROTOCOL Stop: 08/01/17 13:22 Senna (Senna) 8.6 mg PO DAILY [facility] Stop: 07/31/17 08:59 Last Admin: 06/02/17 09:00 Dose: 8.6 mg Sodium Chloride (Nacl Tab) 1 gm PO TID [facility] Stop: 07/31/17 08:59 Last Admin: 06/02/17 20:35 Dose: 1 gm Tramadol HCl (Ultram) 50 mg PO Q6H PRN PRN Reason: Pain (Mild) Stop: 07/31/17 08:27 Last Admin: 06/03/17 03:28 Dose: 50 mg General: Alert, Oriented x3, Cooperative, No acute distress HEENT: Atraumatic Neck: Supple Cardiovascular: Regular rate Lungs: Clear to auscultation Abdomen: Bowel sounds, Soft, Other (Surgical wound with some drainage) Extremities: Other (No edema) Neurological: Normal gait Skin: Other (Warm and dry) Psych/Mental Status: Mental status NL - Procedures Procedures: Procedures Procedure Code Date BLOOD TRANSFUSION SERVICE 56402 05/31/17 TRANSFUSE NONAUT RED BLOOD CELLS IN PERIPH VEIN, [facility] [id number] 05/31/17 Assessment/Plan - Assessment Assessment: Patient is awake, calm in no acute distress. Dx: Thombocytopenia, Hyponatrenia , Infected surgical wound, Cirrhosis, Esophageal varices. - Plan Plan: Patient just transfused, wound culture requested, Thrombocytopenia improving, Hyponatremia improving, on Meropenem. Will continue to monitor.
[2017-06-03] MEDS: Lactobacillus Rhamnosus 10 Billion CFU Capsule PO SCH (09:34)
[2017-06-03 12:09] LABS: FOLIC ACID 8.3 ng/mL (>3.0)
--- NOTE | 2017-06-03 12:26 | General Progress Note ---
Subjective - Review of Systems Service Date: 06/03/17 Events since last encounter: no bleeding Objective - Results Result Diagrams: 06/03/17 03:30 06/02/17 05:10 Recent Labs: Laboratory Last Values WBC 3.0 Th/cmm (4.8-10.8) L D 06/03/17 03:30 RBC 2.58 Mil/cmm (4.30-5.70) L 06/03/17 03:30 Hgb 8.9 gm/dL (13.2-17.3) L 06/03/17 03:30 Hct 25.8 % (39.0-49.0) L 06/03/17 03:30 MCV 100.1 fl (80-99) H 06/03/17 03:30 MCH 34.6 pg (26.0-30.0) H 06/03/17 03:30 MCHC Differential 34.6 pg (28.0-36.0) 06/03/17 03:30 RDW 23.6 % (11.5-20.0) H 06/03/17 03:30 Plt Count 27 Th/cmm (150-400) L* 06/03/17 03:30 MPV 10.1 fl 06/03/17 03:30 Band Neutrophils % 3 % (0-10) 06/03/17 03:30 Eosinophils % 7.3 % (0.0-5.0) H 06/01/17 08:40 Neutrophils (Manual) 66 % (40-80) 06/03/17 03:30 Lymphocytes 13 % (20-50) L 06/03/17 03:30 Monocytes 9 % (2-10) 06/03/17 03:30 Eosinophils 8 % (0-5) H 06/03/17 03:30 Basophils 0 % (0-3) 05/31/17 16:10 Atypical Lymphocytes 1 % 06/03/17 03:30 Platelet Estimate DECREASED PLATELETS (NORMAL) 06/03/17 03:30 Platelet Morphology NORMAL (NORMAL) 06/03/17 03:30 Poikilocytosis 1+ 06/03/17 03:30 Anisocytosis 2+ 06/03/17 03:30 Rouleaux 1+ 06/03/17 03:30 RBC Morph Micro Appear ABNORMAL (NORMAL) 06/03/17 03:30 PT 15.6 SECONDS (9.5-11.5) H 06/02/17 16:35 INR 1.47 (0.5-1.4) H 06/02/17 16:35 PTT (Actin FS) 39.4 SECONDS (26.0-38.0) H 06/02/17 16:35 Sodium 119 mEq/L (136-145) L* 06/02/17 05:10 Potassium 4.6 mEq/L (3.5-5.1) 06/02/17 05:10 Chloride 94 mEq/L (98-107) L 06/02/17 05:10 Carbon Dioxide 22.8 mEq/L (21.0-31.0) 06/02/17 05:10 Anion Gap 6.8 (7.0-16.0) L 06/02/17 05:10 BUN 15 mg/dL (7-25) 06/02/17 05:10 Creatinine 0.9 mg/dL (0.7-1.3) 06/02/17 05:10 Est GFR ( Amer) > 60.0 ml/min (>90) 06/02/17 05:10 Est GFR (Non-Af Amer) > 60.0 ml/min 06/02/17 05:10 BUN/Creatinine Ratio 16.7 06/02/17 05:10 Glucose 110 mg/dL (70-105) H 06/02/17 05:10 Whole Bld Lactic Acid 1.47 mmol/L (0.60-1.99) 05/31/17 16:10 Calcium 7.9 mg/dL (8.6-10.3) L 06/02/17 05:10 Ferritin 182 ng/mL (30-400) 06/02/17 05:10 Total Bilirubin 10.5 mg/dL (0.3-1.0) H 06/02/17 05:10 AST 52 U/L (13-39) H 06/02/17 05:10 ALT 26 U/L (7-52) 06/02/17 05:10 Alkaline Phosphatase 118 U/L (34-104) H 06/02/17 05:10 Total Protein 5.3 gm/dL (6.0-8.3) L 06/02/17 05:10 Albumin 2.1 gm/dL (4.2-5.5) L 06/02/17 05:10 Globulin 3.2 gm/dL 06/02/17 05:10 Albumin/Globulin Ratio 0.7 (1.0-1.8) L 06/02/17 05:10 Vitamin B12 1677 pg/mL (211-946) H 06/02/17 05:10 Folic Acid 8.3 ng/mL (>3.0) 06/02/17 05:10 Vancomycin Trough 12.5 ug/mL (10-20) 06/03/17 03:30 Blood Type AB POSITIVE 05/31/17 17:08 Antibody Screen NEGATIVE 05/31/17 17:08 Crossmatch See Detail 05/31/17 17:08 - Physical Exam Vitals and I&O: Vital Signs Temp 98.2 F 06/03/17 04:00 Pulse 100 06/03/17 04:00 Resp 20 06/03/17 04:00 BP 107/67 06/03/17 09:34 Pulse Ox 99 06/03/17 04:00 Intake & Output 06/02/17 06/03/17 06/03/17 18:59 06:59 18:59 Intake Total 700 200 Balance 700 200 Weight (lbs) 93.44 kg Intake: Intake, IV Amount 600 200 Meropenem 1 gm In Sodium 100 200 Chloride 0.9% 100 ml @ 100 mls/hr IV Q8H [facility] Rx# :[id number] Vancomycin HCl 1.5 gm In 500 Sodium Chloride 0.9% 500 ml @ 250 mls/hr IV Q12H [facility] Rx#:[id number] Oral 100 Other: # Voids 3 Active Medications: Current Medications Al Hydrox/Mg Hydrox/Simethicone (Maalox) 30 ml PO Q8HR PRN PRN Reason: Indigestion Stop: 07/31/17 21:17 Last Admin: 06/03/17 04:11 Dose: 30 ml Famotidine (Pepcid) 20 mg PO DAILY [facility] Stop: 07/31/17 08:59 Last Admin: 06/03/17 09:34 Dose: 20 mg Furosemide (Lasix) 40 mg PO DAILY [facility] Stop: 07/31/17 08:59 Last Admin: 06/03/17 09:34 Dose: 40 mg Vancomycin HCl 1.5 gm/ Sodium (Chloride) 500 mls @ 250 mls/hr IV Q12H [facility] Stop: 07/31/17 15:59 Last Admin: 06/03/17 05:12 Dose: 250 mls/hr Meropenem 1 gm/ Sodium (Chloride) 100 mls @ 100 mls/hr IV Q8H [facility] Stop: 08/01/17 11:59 Last Admin: 06/03/17 11:18 Dose: 100 mls/hr Lactobacillus Rhamnosus (Culturelle) 1 each PO DAILY [facility] Stop: 07/31/17 08:59 Last Admin: 06/03/17 09:34 Dose: 1 each Miscellaneous (Vancomycin Iv Per Pharmacy) 1 ea PRN [facility] Stop: 07/31/17 15:44 Miscellaneous (Probiotic Screen) 1 [facility] PRN PRN PRN Reason: PROTOCOL Stop: 08/01/17 13:22 Senna (Senna) 8.6 mg PO DAILY [facility] Stop: 07/31/17 08:59 Last Admin: 06/03/17 09:34 Dose: 8.6 mg Sodium Chloride (Nacl Tab) 1 gm PO TID [facility] Stop: 07/31/17 08:59 Last Admin: 06/03/17 09:34 Dose: 1 gm Tramadol HCl (Ultram) 50 mg PO Q6H PRN PRN Reason: Pain (Mild) Stop: 07/31/17 08:27 Last Admin: 06/03/17 03:28 Dose: 50 mg General: Alert, Oriented x3, Cooperative, No acute distress HEENT: Atraumatic Neck: Supple Cardiovascular: Regular rate Lungs: Clear to auscultation Abdomen: Bowel sounds, Soft, Other (Surgical wound with some drainage) Extremities: Other (No edema) Neurological: Normal gait Skin: Other (Warm and dry) Psych/Mental Status: Mental status NL - Procedures Procedures: Procedures Procedure Code Date BLOOD TRANSFUSION SERVICE 81004 05/31/17 TRANSFUSE NONAUT RED BLOOD CELLS IN PERIPH VEIN, [facility] 44537Q0 05/31/17 Assessment/Plan - Assessment Assessment: * Cirrhosis * Splenomegaly * Ventral hernia * Pancytopenia 2/2 hypersplenism * Hepatic coagulopathy No need for transfusion
--- NOTE | 2017-06-03 16:08 | Discharge Summary ---
General Discharge Summary - Discharge Summary Date of Admission: 05/31/19 Admitting Diagnosis: Thrombocytopenia, Hyponatremia, Infected surgical wound, Cirrhosis, Esophag Discharge Date: 06/03/17 Discharge Diagnosis: Thrombocytopenia, Hyponatremia, Infected surgical wound, Cirrhosis, Esophag Laboratory Findings: Laboratory Tests 06/01/17 06/01/17 06/02/17 08:40 08:40 05:10 WBC 2.7 L 2.2 L* RBC 2.61 L 2.41 L Hgb 8.9 L 8.3 L Hct 25.8 L D 24.0 L MCV 99.0 99.5 H MCH 33.9 H 34.3 H MCHC Differential 34.3 34.5 RDW 22.5 H 23.3 H Plt Count 27 L* D 23 L* MPV 8.9 8.8 Band Neutrophils % 2 Eosinophils % 7.3 H Neutrophils (Manual) 68 58 Lymphocytes 26 29 Monocytes 1 L 6 Eosinophils 4 7 H Atypical Lymphocytes Platelet Estimate DECREASED PLATELETS Platelet Morphology Poikilocytosis Anisocytosis Rouleaux RBC Morph Micro Appear PT INR PTT (Actin FS) Sodium 117 L* Potassium 4.5 Chloride 95 L Carbon Dioxide 20.3 L Anion Gap 6.2 L BUN 21 Creatinine 1.0 Est GFR ( Amer) > 60.0 Est GFR (Non-Af Amer) > 60.0 BUN/Creatinine Ratio 21.0 Glucose 98 Calcium 8.0 L Ferritin Total Bilirubin 8.7 H AST 50 H ALT 25 Alkaline Phosphatase 152 H Total Protein 5.2 L Albumin 2.2 L Globulin 3.0 Albumin/Globulin Ratio 0.7 L Vitamin B12 Folic Acid Vancomycin Trough 06/02/17 06/02/17 06/02/17 05:10 05:10 05:10 WBC RBC Hgb Hct MCV MCH MCHC Differential RDW Plt Count MPV Band Neutrophils % Eosinophils % Neutrophils (Manual) Lymphocytes Monocytes Eosinophils Atypical Lymphocytes Platelet Estimate Platelet Morphology Poikilocytosis Anisocytosis Rouleaux RBC Morph Micro Appear PT INR PTT (Actin FS) Sodium 119 L* Potassium 4.6 Chloride 94 L Carbon Dioxide 22.8 Anion Gap 6.8 L BUN 15 Creatinine 0.9 Est GFR ( Amer) > 60.0 Est GFR (Non-Af Amer) > 60.0 BUN/Creatinine Ratio 16.7 Glucose 110 H Calcium 7.9 L Ferritin 182 Total Bilirubin 10.5 H AST 52 H ALT 26 Alkaline Phosphatase 118 H Total Protein 5.3 L Albumin 2.1 L Globulin 3.2 Albumin/Globulin Ratio 0.7 L Vitamin B12 1677 H Folic Acid 8.3 Vancomycin Trough 06/02/17 06/03/17 06/03/17 16:35 03:30 03:30 WBC 3.0 L D RBC 2.58 L Hgb 8.9 L Hct 25.8 L MCV 100.1 H MCH 34.6 H MCHC Differential 34.6 RDW 23.6 H Plt Count 27 L* MPV 10.1 Band Neutrophils % 3 Eosinophils % Neutrophils (Manual) 66 Lymphocytes 13 L Monocytes 9 Eosinophils 8 H Atypical Lymphocytes 1 Platelet Estimate DECREASED PLATELETS Platelet Morphology NORMAL Poikilocytosis 1+ Anisocytosis 2+ Rouleaux 1+ RBC Morph Micro Appear ABNORMAL PT 15.6 H INR 1.47 H PTT (Actin FS) 39.4 H Sodium Potassium Chloride Carbon Dioxide Anion Gap BUN Creatinine Est GFR ( Amer) Est GFR (Non-Af Amer) BUN/Creatinine Ratio Glucose Calcium Ferritin Total Bilirubin AST ALT Alkaline Phosphatase Total Protein Albumin Globulin Albumin/Globulin Ratio Vitamin B12 Folic Acid Vancomycin Trough 12.5 Hospital Course: Patient was addmited to med/whit, he was started in IV NS, Salt tabs, Platlelets and RBC were transfused, He was continue with SNF meds. Consult with ID, Hematology and GI were requested and recommendations were follow. Condition at Discharge: Stable Disposition: Discharge/Transfered to SNF Home Medications: Home Medication Medication Instructions Recorded Type Anidulafungin [Eraxis] 100 mg IV DAILY 05/31/17 History Demeclocycline [Declomycin] 150 mg PO Q12HR 05/31/17 History Famotidine [Pepcid] 20 mg PO DAILY 05/31/17 History Furosemide [Lasix] 40 mg PO DAILY 05/31/17 History Lactobacillus Acidophilus 1 each PO DAILY 05/31/17 History [Acidophilus Lactobacillus] Piperacillin Sodium/Tazobactam 3.375 gm IV Q8H 05/31/17 History [Zosyn 3.375 Gram Vial] Sennosides A and B [Senna] 8.6 mg PO DAILY 05/31/17 History Tramadol HCl [Ultram] 50 mg PO Q6H PRN 05/31/17 History Inpatient Medications: Current Medications Al Hydrox/Mg Hydrox/Simethicone (Maalox) 30 ml PO Q8HR PRN PRN Reason: Indigestion Stop: 07/31/17 21:17 Last Admin: 06/03/17 04:11 Dose: 30 ml Famotidine (Pepcid) 20 mg PO DAILY [facility] Stop: 07/31/17 08:59 Last Admin: 06/03/17 09:34 Dose: 20 mg Furosemide (Lasix) 40 mg PO DAILY [facility] Stop: 07/31/17 08:59 Last Admin: 06/03/17 09:34 Dose: 40 mg Vancomycin HCl 1.5 gm/ Sodium (Chloride) 500 mls @ 250 mls/hr IV Q12H [facility] Stop: 07/31/17 15:59 Last Admin: 06/03/17 15:21 Dose: 250 mls/hr Meropenem 1 gm/ Sodium (Chloride) 100 mls @ 100 mls/hr IV Q8H [facility] Stop: 08/01/17 11:59 Last Admin: 06/03/17 11:18 Dose: 100 mls/hr Lactobacillus Rhamnosus (Culturelle) 1 each PO DAILY [facility] Stop: 07/31/17 08:59 Last Admin: 06/03/17 09:34 Dose: 1 each Miscellaneous (Vancomycin Iv Per Pharmacy) 1 ea [facility] PRN [facility] Stop: 07/31/17 15:44 Miscellaneous (Probiotic Screen) 1 [facility] PRN PRN PRN Reason: PROTOCOL Stop: 08/01/17 13:22 Senna (Senna) 8.6 mg PO DAILY [facility] Stop: 07/31/17 08:59 Last Admin: 06/03/17 09:34 Dose: 8.6 mg Sodium Chloride (Nacl Tab) 1 gm PO TID [facility] Stop: 07/31/17 08:59 Last Admin: 06/03/17 13:16 Dose: 1 gm Tramadol HCl (Ultram) 50 mg PO Q6H PRN PRN Reason: Pain (Mild) Stop: 07/31/17 08:27 Last Admin: 06/03/17 15:50 Dose: 50 mg Activity: As Tolerated Discharge Diet: Regular Consults and Follow-Up: Eitan Cuellar [Primary Care Provider] - Consulting Speciality: Other (Follow by PCP)
[2017-06-04] MEDS ORDERED: Vancomycin HCl 1.5 GM in Sodium Chloride 0.9% 500 ML IV SCH (02:00)
--- NOTE | 2017-06-04 08:30 | Diagnostic Imaging Report ---
Exam: Ultrasound summation abdomen. HISTORY: Splenomegaly Findings: Real-time ultrasound examination abdomen was performed multiple planes. The study somewhat limited due to large amount of ascitic fluid The study demonstrates a small f liver measuring 11.8 cm in span. Cirrhotic changes cannot be excluded. The gallbladder free of calculi the common bile duct measures 3 mm. Pancreas not seen. There is evidence for mild hydronephrosis bilaterally. Right kidney measures 12.5 x 5.8 x 6.6 cm Left kidney measures 11.9 x 6.3 x 6.7 seen in diameter. The spleen is large approximately 20.5 cm in span. IMPRESSION: 1. Ascites. 2. Splenomegaly. 3. Bilateral mild hydronephrosis. 4. Studies limited due to large amount of ascitic fluid.
== END 2017-06-03 19:00 | disposition home or self-care (01) | DRG 721 ==
LOC: ER 15:40 → ICU 18:30 → MSI 22:45
PROVIDERS: ADMIT General Practice; ATTEND General Practice
PROC: 30233N1 Transfusion of Nonautologous Red Blood Cells into Peripheral Vein, Percutaneous Approach (ICD-10-PCS; principal; 2017-06-01)
PROC: 30233R1 Transfusion of Nonautologous Platelets into Peripheral Vein, Percutaneous Approach (ICD-10-PCS; 2017-06-01)
DX: T81.4XXA Infection following a procedure, initial encounter (principal); D61.818 Other pancytopenia; D68.9 Coagulation defect, unspecified; I85.00 Esophageal varices without bleeding; E87.1 Hypo-osmolality and hyponatremia; E44.1 Mild protein-calorie malnutrition; D69.6 Thrombocytopenia, unspecified; Y83.8 Other surgical procedures as the cause of abnormal reaction of the patient, or of later complication, without mention of misadventure at the time of the procedure; K74.60 Unspecified cirrhosis of liver; F11.90 Opioid use, unspecified, uncomplicated; D73.1 Hypersplenism; Z79.899 Other long term (current) drug therapy; Y92.89 Other specified places as the place of occurrence of the external cause
CPT/HCPCS: 36415-UA; 76700-TC; 80053-TC; 80202-TC; 82607-90; 82728-90; 82746-90; 83605; 85007-TC; 85027-TC; 85610-TC; 85730-TC; 86850-TC; 86900-TC; 86901-TC; 86922-TC; 87070-90; J0692; J1940; J2185; J3370; J7030; J7040; P9016; P9035; Z7610